=== PATIENT | female | born 1965 | race Caucasian/White ===

== ENCOUNTER → 2017-05-01 | Outpatient (CLI) | payer BC | LOC: MAMO 04-19 11:00 → US 04-19 12:30 → MAMO 10:08 | DX: N64.4 Mastodynia (principal); Z90.710 Acquired absence of both cervix and uterus; Z80.3 Family history of malignant neoplasm of breast | CPT/HCPCS: 76641-RT; G0204 ==

== ENCOUNTER → 2020-12-08 | Outpatient (CLI) | payer BC | LOC: HEART 5 08:43 | DX: R07.9 Chest pain, unspecified (principal); I10 Essential (primary) hypertension; E78.00 Pure hypercholesterolemia, unspecified; R22.32 Localized swelling, mass and lump, left upper limb; R93.1 Abnormal findings on diagnostic imaging of heart and coronary circulation | CPT/HCPCS: 78452; 93306; A9502; J2785 ==

== ENCOUNTER → 2021-02-03 | Outpatient (CLI) | payer BC | LOC: MAMO 10-14 09:00 | DX: Z12.31 Encounter for screening mammogram for malignant neoplasm of breast (principal); Z80.3 Family history of malignant neoplasm of breast; Z90.710 Acquired absence of both cervix and uterus | CPT/HCPCS: 77063; 77067 ==

== ENCOUNTER → 2021-02-22 | Outpatient (CLI) | payer BC | LOC: US 14:53 | DX: N64.4 Mastodynia (principal); R92.8 Other abnormal and inconclusive findings on diagnostic imaging of breast; N60.02 Solitary cyst of left breast; N60.01 Solitary cyst of right breast | CPT/HCPCS: 76641-LT; 76641-RT ==

== ENCOUNTER → 2021-06-04 | Outpatient (CLI) | payer BC | LOC: US 05-28 13:30 | DX: R22.31 Localized swelling, mass and lump, right upper limb (principal); R22.2 Localized swelling, mass and lump, trunk; E04.1 Nontoxic single thyroid nodule | CPT/HCPCS: 73070; 73090; 76536 ==

== ENCOUNTER → 2021-08-11 | Outpatient (CLI) | payer BC | LOC: MRI 10:14 | DX: R22.31 Localized swelling, mass and lump, right upper limb (principal) | CPT/HCPCS: 36415; 73220; 82565; 84520; A9577 ==

== ENCOUNTER 2021-09-04 12:21 | Inpatient (IN) | payer BC ==
[~2021-09-04] VITALS: Ht 165.1 cm; Wt 92.5 kg
[2021-09-04 14:20] LABS: HEMOGLOBIN 13.7 gm/dl (12.3-15.3); RED BLOOD COUNT 4.88 M/UL (4.00-5.10); WHITE BLOOD COUNT 14.5 K/UL (4.5-11.0)
[2021-09-04 14:39] LABS: BUN/CREATININE RATIO 20 (0-10)
[2021-09-04] MEDS ORDERED: HYDROCHLOROTHIA25 MG PO (16:51)
[2021-09-04] MEDS ORDERED: LISINOPRIL5 MG PO (16:51)
[2021-09-04] MEDS ORDERED: GLIMEPIRIDE1 MG PO (16:52)
[2021-09-04] MEDS ORDERED: GLUCOPHAGE XR500 M1 PO (16:53)
[2021-09-04] MEDS ORDERED: METOPROLOL SUC100 MG PO (16:54)
[2021-09-04] MEDS ORDERED: MONTELUKAST SOD10 MG PO (16:54)
[2021-09-04] MEDS ORDERED: PRAVASTATIN SOD40 MG PO (16:55)
[2021-09-04] MEDS ORDERED: PANTOPRAZOLE SO20 MG PO (16:55)
[2021-09-04] MEDS ORDERED: ZYLOPRIM 300 M300 MG PO (16:55)
[2021-09-05 08:17] LABS: HEMOGLOBIN 12.8 gm/dl (12.3-15.3); RED BLOOD COUNT 4.63 M/UL (4.00-5.10)
[2021-09-05 08:30] LABS: WHITE BLOOD COUNT 9.2 K/UL (4.5-11.0)
[2021-09-05 08:41] LABS: BUN/CREATININE RATIO 16 (0-10)
[2021-09-07 06:34] LABS: HEMOGLOBIN 12.7 gm/dl (12.3-15.3); RED BLOOD COUNT 4.5 M/UL (4.00-5.10); WHITE BLOOD COUNT 10.1 K/UL (4.5-11.0)
[2021-09-07 06:43] LABS: BUN/CREATININE RATIO 20 (0-10)
[2021-09-09] MEDS ORDERED: VALIUM 5 MG TAB5 MG PO (08:42)
[2021-09-09] MEDS ORDERED: PERCOCET 5/325 T1 EA PO (08:42)
== END 2021-09-09 11:20 | disposition home health service (06) | DRG 538 ==
LOC: ER1 12:21 → CDU 15:30 → M/S 15:30
PROVIDERS: Internal Medicine; Physician Assistant; ADMIT Internal Medicine
DX: S76.311A Strain of muscle, fascia and tendon of the posterior muscle group at thigh level, right thigh, initial encounter (principal); I10 Essential (primary) hypertension; Z20.822 Contact with and (suspected) exposure to COVID-19; E11.9 Type 2 diabetes mellitus without complications; K58.9 Irritable bowel syndrome, unspecified; M10.9 Gout, unspecified; W01.0XXA Fall on same level from slipping, tripping and stumbling without subsequent striking against object, initial encounter; K21.9 Gastro-esophageal reflux disease without esophagitis; Z79.4 Long term (current) use of insulin; H53.8 Other visual disturbances; Z90.710 Acquired absence of both cervix and uterus; Z90.49 Acquired absence of other specified parts of digestive tract; Z88.0 Allergy status to penicillin; Z88.2 Allergy status to sulfonamides; Z91.041 Radiographic dye allergy status; Z87.59 Personal history of other complications of pregnancy, childbirth and the puerperium; Z85.9 Personal history of malignant neoplasm, unspecified
CPT/HCPCS: 36415; 70450; 71045; 72192; 73502; 73552; 73718; 80048; 80053; 81001; 82962; 83036; 85025; 85027; 87040; 87086; 93005; 96374; 96375; 96376; 97116-GP-CQ; 97162; 97530-GP-CQ; 99285; G0378; J1170; J2405; J7030; U0002

== ENCOUNTER → 2022-06-23 | Outpatient (CLI) | payer BC ==
[~2022-06-23] MED LIST: GLIMEPIRIDE1 MG PO; GLUCOPHAGE XR500 M1 PO; HYDROCHLOROTHIA25 MG PO; LISINOPRIL5 MG PO; METOPROLOL SUC100 MG PO; MONTELUKAST SOD10 MG PO; PANTOPRAZOLE SO20 MG PO; PERCOCET 5/325 T1 EA PO; PRAVASTATIN SOD40 MG PO; VALIUM 5 MG TAB5 MG PO; ZYLOPRIM 300 M300 MG PO
== END ==
LOC: MAMO 08:00
DX: Z12.31 Encounter for screening mammogram for malignant neoplasm of breast (principal)
CPT/HCPCS: 77063; 77067